=== PATIENT | female | born 1970 | race Caucasian/White ===

== ENCOUNTER 2018-05-01 11:06 | Emergency (ER) | payer BC ==
--- NOTE | 2018-05-01 13:14 | RAD ---
CHEST 2 VIEWS: Date: 05/01/18 HISTORY: Cough. COMPARISON: None. FINDINGS: Lungs are clear. No pneumothorax or effusion. Cardiac silhouette and mediastinal contours within norm al limits. IMPRESSION: No acute intrathoracic abnormality. POS: [id number]
== END 2018-05-01 12:30 | disposition home or self-care (01) ==
LOC: NAV ERS 11:06
DX: J20.9 Acute bronchitis, unspecified (principal); F17.210 Nicotine dependence, cigarettes, uncomplicated; F41.9 Anxiety disorder, unspecified; F32.9 Major depressive disorder, single episode, unspecified
CPT/HCPCS: 71046; 94640